=== PATIENT | female | born 1975 ===

== ENCOUNTER → 2023-11-28 15:09 | Outpatient (REF) | payer OTHER, SELFPAY | LOC: WDC 15:09 | PROVIDERS: ATTENDING PHYSICIAN Obstetrics & Gynecology; FAMILY PHYSICIAN Family Medicine | DX: Z12.31 Encounter for screening mammogram for malignant neoplasm of breast (principal) | CPT/HCPCS: 77063; 77067 ==

== ENCOUNTER → 2024-08-10 12:11 | Outpatient (REF) | payer OTHER, SELFPAY | LOC: RAD 12:11 | PROVIDERS: ATTENDING PHYSICIAN Nurse Practitioner Adult Health | DX: R05.1 Acute cough (principal); R50.9 Fever, unspecified | CPT/HCPCS: 71046 ==

== ENCOUNTER → 2024-09-09 14:15 | Outpatient (REF) | payer OTHER, SELFPAY | LOC: RAD 14:15 | PROVIDERS: ATTENDING PHYSICIAN Nurse Practitioner Adult Health; FAMILY PHYSICIAN Family Medicine | DX: J84.9 Interstitial pulmonary disease, unspecified (principal) | CPT/HCPCS: 71046 ==

== ENCOUNTER → 2024-11-29 15:00 | Outpatient (REF) | payer OTHER, SELFPAY | LOC: WDC 15:00 | PROVIDERS: ATTENDING PHYSICIAN Obstetrics & Gynecology | DX: Z12.31 Encounter for screening mammogram for malignant neoplasm of breast (principal) | CPT/HCPCS: 77063; 77067 ==

== ENCOUNTER → 2025-06-22 14:53 | Outpatient (REF) | payer OTHER, SELFPAY | LOC: WDC 14:53 | PROVIDERS: ATTENDING PHYSICIAN Obstetrics & Gynecology; FAMILY PHYSICIAN Family Medicine | DX: R92.2 Inconclusive mammogram (principal) | CPT/HCPCS: 76641 ==